=== PATIENT | female | born 1935 | race Caucasian/White ===

== ENCOUNTER 2023-06-12 16:55 | Inpatient (IN) | payer MEDICARE ==
--- NOTE | 2023-06-12 17:21 | ED ---
General Adult HPI - General Chief complaint: Neuro Symptoms/Deficit Stated complaint: Neuro Symptoms-Transfer Time Seen by Provider: 06/12/23 16:59 Source: EMS Mode of arrival: EMS Limitations: altered mental status, physical limitation - History of Present Illness Initial comments: Dictation was produced using [employer] dictation software. please excuse any grammatical, word or spelling errors. Chief Complaint: 87-year-old female transferred from outside hospital for CVA History of Present Illness: Patient is 87-year-old female. She is DO NOT RESUS CITATE. She was seen at [facility] emergency department after being found on the ground. Last normal was allegedly yesterday sometime. Patient is a poor historian secondary to dementia. History of present illness obtained from documentation review from [facility] emergency department. She had workup performed CT showed right-sided subacute versus acute infarct. She initially presented for fall. She was discovered this morning to have slurred speech and facial droop. The ROS documented in this emergency department record has been reviewed and confirmed by me. Those systems with pertinent positive or negative responses have been documented in the HPI. All other systems are other negative and/or noncontributory. - Related Data Allergies Allergy/AdvReac Type Severity Reaction Status Date / Time No Known Allergies Allergy Verified 06/12/23 17:34 Review of Systems ROS Statement: Those systems with pertinent positive or pertinent negative responses have been documented in the HPI. ROS Other: All systems not noted in ROS Statement are negative. General Exam - General Exam Comments Initial Comments: PHYSICAL EXAM: General Impression: Alert and oriented x3, not in acute distress HEENT: Normocephalic atraumatic, extra-ocular movements intact, pupils equal and reactive to light bilaterally, mucous membranes moist. Cardiovascular: Heart regular rate and rhythm Chest: Able to complete full sentences, no retractions, no tachypnea Abdomen: abdomen soft, non-tender, non-distended, no organomegaly Musculoskeletal: Pulses present and equal in all extremities, no peripheral edema Motor: no focal deficits noted Neurological: C left-sided facial droop, slurred speech, aphasic Skin: Intact with no visualized rashes Psych: Normal affect and mood Limitations: altered mental status, physical limitation Course Vital Signs 06/12/23 16:59 Temperature 98.6 F Pulse Rate 73 Respiratory 16 Rate Blood Pressure 209/69 O2 Sat by Pulse 96 Oximetry Medical Decision Making - Medical Decision Making Was pt. sent in by a medical professional or institution (PRABHAKAR Harrington, BARREL ASSEMBLY INSPECTOR, urgent care, hospital, or alf...) When possible be specific @ -Sent from outside emergency department Did you speak to anyone other than the patient for history (EMS, parent, family, police, friend...)? What history was obtained from this source @ -No Did you review nursing and triage notes (agree or disagree)? Why? @ -I reviewed and agree with nursing and triage notes Were old charts reviewed (outside hosp., previous admission, EMS record, old EKG, old radiological studies, urgent care reports/EKG's, alf records)? Report findings @ -Transfer documentation from [facility] was reviewed as discussed above Differential Diagnosis (chest pain, altered mental status, abdominal pain women, abdominal pain men, vaginal bleeding, musculoskeletal, weakness, fever, dyspnea, syncope, headache, dizziness, GI bleed, back pain, seizure, CVA, palpatations, mental health)? @ - Differential CVA: Ischemic stroke, hemorrhagic stroke, brain tumor, atypical migraine, Wernicke's encephalopathy, seizure, multiple sclerosis, meningitis, encephalitis, hypoglycemia, Guillain-Guzman, electrolytes disturbance, myasthenia gravis.... This is not meant to be an all-inclusive list EKG interpreted by me (3pts min.). @ -My EKG interpretation: Ventricular rate 80, sinus rhythm,. 142, cures 1 8, QTc 438. Interpretation limited due to significant artifact X-rays interpreted by me (1pt min.). @ -None done CT interpreted by me (1pt min.). @ -None done U/S interpreted by me (1pt. min.). @ -None done What testing was considered but not performed or refused? (CT, X-rays, U/S, labs)? Why? @ -None What meds were considered but not given or refused? Why? @ -None Did you discuss the management of the patient with other professionals (professionals i.e. PRABHAKAR Harrington, BARREL ASSEMBLY INSPECTOR, lab, RT, psych nurse, social worker health services, heel caser, teacher, special service officer, showcase maker)? Give summary @ -Case discussed with hospitalist for admission Was smoking cessation discussed for >3mins.? @ -No Was critical care preformed (if so, how long)? @ -No Were there social determinants of health that impacted care today? How? (Homelessness, low income, unemployed, alcoholism, drug addiction, transportation, low edu. Level, literacy, decrease access to med. care, nursing home, rehab)? @ -No Was there de-escalation of care discussed even if they declined (Discuss DNR or withdrawal of care, Hospice)? DNR status @ -No What co-morbidities impacted this encounter? (DM, HTN, Smoking, COPD, CAD, Cancer, CVA, ARF, Chemo, Hep., AIDS, mental health diagnosis, sleep apnea, morbid obesity)? @ -None Was patient admitted / discharged? Hospital course, mention meds given and route, prescriptions, significant lab abnormalities, going to OR and other pertinent info. @ -87-year-old female who was allegedly DNR according to paperwork presents to the ER as a transfer from outside emergency department for inpatient management of CVA. Vital signs stable. Patient well-appearing at the bedside. Patient will be admitted with consultation to neurology. Undiagnosed new problem with uncertain prognosis? @ -No Drug Therapy requiring intensive monitoring for toxicity (Heparin, Nitro, Insulin, Cardizem)? @ -No Were any procedures done? @ -No Diagnosis/symptom? Acute, or Chronic, or Acute on Chronic? Uncomplicated (without systemic symptoms) or Complicated (systemic symptoms)? @ -CVA Side effects of treatment? @ -No Exacerbation, Progression, or Severe Exacerbation? @ -No Poses a threat to life or bodily function? How? (Chest pain, [place], [place], pneumonia, PE, COPD, DKA, ARF, appy, cholecystitis, CVA, Diverticulitis, Homicidal, Suicidal, threat to staff... and all critical care pts) @ -yes Disposition Clinical Impression: Cerebrovascular accident (CVA) Disposition: ADMITTED IP TO THIS [facility] Condition: Fair Referrals: Nonstaff,Physician [Primary Care Provider] - 1-2 days Decision Time: 17:58
[2023-06-13] MEDS ORDERED: DEXTROSE 50% SYRINGE 50 ML IVP PRN ×2 (00:50)
[2023-06-13] MEDS: METOPROLOL SUCCINATE (ER) 50 MG TAB.ER.24H PO SCH (02:17)
[2023-06-13] MEDS: hydrALAZINE HCL 50 MG TAB PO SCH (02:17)
[2023-06-13] MEDS: ISOSORBIDE DINITRATE 20 MG TAB PO ONE (02:19)
[2023-06-13] MEDS: hydroCHLOROthiazide 12.5 MG CAP PO SCH (02:19)
[2023-06-13 04:18] LABS: Glucose,Whole Blood 172 mg/dL (70-110)
[2023-06-13 07:26] LABS: Glucose,Whole Blood 142 mg/dL (70-110)
[2023-06-13] MEDS: INSULIN ASPART (NovoLOG) 100 UNIT/ML VIAL SQ SCH (07:27)
[2023-06-13] MEDS: DAPAGLIFLOZIN PROPANEDIOL 10 MG TABLET PO SCH (09:17)
[2023-06-13 11:24] LABS: Chol/HDL Ratio 3.65 Ratio; LDL Cholesterol,Calculated 86.8 mg/dL (0.0-131.0)
--- NOTE | 2023-06-13 11:58 | P.HPIM ---
History of Present Illness 87-year-old female with history of advanced dementia possibly vascular dementia came in with complaints of strokelike symptoms evidenced by family members. Patient was transferred from [facility] CT of the head did not show significant acute abnormality. Repeat CT is being obtained here and get a Doppler of the carotid is being obtained. I am unable to get much of the history from the patient. On examination patient has some drift in the left hand otherwise patient has 5/5 strength in all extremities although does have some generalized weakness. Patient does not have any facial droop that I can appreciate. Neurology evaluated the patient. REVIEW OF SYSTEMS: Unable to obtain this should PHYSICAL EXAMINATION: GENERAL: The patient is alert and oriented x1 which is her baseline, not in any acute distress. Thin built HEENT: Pupils are round and equally reacting to light. EOMI. No scleral icterus. No conjunctival pallor. Normocephalic, atraumatic. No pharyngeal erythema. No thyromegaly. CARDIOVASCULAR: S1 and S2 present. No murmurs, rubs, or gallops. PULMONARY: Chest is clear to auscultation, no wheezing or crackles. ABDOMEN: Soft, nontender, nondistended, normoactive bowel sounds. No palpable organomegaly. MUSCULOSKELETAL: No joint swelling or deformity. EXTREMITIES: No cyanosis, clubbing, or pedal edema. NEUROLOGICAL: As mentioned in HPI SKIN: No rashes. Assessment and plan -Possible cerebrovascular accident in the left hand may be a stroke in the superolateral surface of the right brain, MCA territory. Patient was started on aspirin increase the statin dose permissive hypertension. -Sinus bradycardia metoprolol will be held temporarily -Vascular dementia patient is at her baseline supportive care physical therapy occupational therapy speech therapy evaluation -Type 2 diabetes mellitus -Hyperlipidemia -Hypertension -Hyperactive urinary bladder Prevention: Critical problems patient will be resumed on appropriate home medications, patient lives by herself will need placement may be in a memory care unit DVT prophylaxis: Lovenox Medications and Allergies Home Medications Medication Instructions Recorded Confirmed Type ALPRAZolam [Xanax] 0.5 mg PO BID PRN 06/12/23 06/12/23 History Atorvastatin [Lipitor] 20 mg PO HS 06/12/23 06/12/23 History Docusate [Colace] 100 mg PO Q48H 06/12/23 06/12/23 History Empagliflozin [Jardiance] 10 mg PO DAILY 06/12/23 06/12/23 History Isosorbide Dinitrate 20 mg PO DAILY 06/12/23 06/12/23 History Levothyroxine Sodium [Synthroid] 50 mcg PO DAILY 06/12/23 06/12/23 History Metoprolol Succinate (ER) [Toprol 50 mg PO DAILY 06/12/23 06/12/23 History XL] Oxybutynin Chloride [oxyBUTYnin 10 mg PO DAILY 06/12/23 06/12/23 History chloride ER] hydroCHLOROthiazide [Hydrodiuril] 12.5 mg PO DAILY 06/12/23 06/12/23 History metFORMIN HCL ER [Glucophage XR] 500 mg PO DAILY 06/12/23 06/12/23 History Allergies Allergy/AdvReac Type Severity Reaction Status Date / Time No Known Allergies Allergy Verified 06/12/23 18:48 Physical Exam Vitals: Vital Signs Temp Pulse Resp BP Pulse Ox 06/13/23 11:25 49 L 20 169/69 94 L 06/13/23 09:52 98.2 F 58 L 23 189/69 96 06/13/23 09:15 75 18 189/69 95 06/13/23 08:00 65 17 188/70 94 L 06/13/23 06:16 97.5 F L 67 16 175/58 95 06/13/23 03:26 53 L 19 167/71 94 L 06/13/23 02:00 84 16 181/81 94 L 06/12/23 22:50 61 16 202/70 95 06/12/23 20:18 72 21 196/81 95 06/12/23 19:32 72 18 201/70 96 06/12/23 18:35 74 18 139/71 95 06/12/23 16:59 98.6 F 73 16 209/69 96 Intake and Output 06/12/23 06/13/23 06/13/23 22:59 06:59 14:59 Other: Weight 65.771 kg Results Labs: Abnormal Lab Results - Last 24 Hours (Table) 06/13/23 06/13/23 06/13/23 Range/Units 04:17 07:25 07:51 POC Glucose (mg/dL) 172 H 142 H (70-110) mg/dL Triglycerides 230.00 H (0.00-149.00) mg/dL VLDL Cholesterol, Calc 46.00 H (5.00-40.00) mg/dL
[2023-06-13 12:48] LABS: Glucose,Whole Blood 131 mg/dL (70-110)
[2023-06-13] MEDS: ASPIRIN 81 MG PO SCH (12:48)
[2023-06-13] MEDS: ENOXAPARIN 40 MG/0.4 ML SYRINGE SQ SCH (12:49)
--- NOTE | 2023-06-13 13:24 | P.CNNES ---
History of Present Illness Consult date: 06/13/23 Requesting physician: Luke Eid Reason for Consult: cva History of Present Illness: This is an 87-year-old woman with history of dementia who was sent from [place] emergency department for further workup. History was obtained from medical record. Per the ED note she was found the done on the ground and last normal was allegedly the night before she presents the hospital. It seems that she was found to have slurred speech and facial droop. It seems that she had a CT of the head at the outside hospital which showed right sided subacute versus acute infarct. Some of the workup in our facility consisted of: Lipid panel is triglyceride is 23, cholesterol is 183, LDLs 86 and HDL is 50. The POC glucose is 172 Review of Systems Review of system is Limited but positive and negative as per HPI. Medications and Allergies Home Medications Medication Instructions Recorded Confirmed Type ALPRAZolam [Xanax] 0.5 mg PO BID PRN 06/12/23 06/12/23 History Atorvastatin [Lipitor] 20 mg PO HS 06/12/23 06/12/23 History Docusate [Colace] 100 mg PO Q48H 06/12/23 06/12/23 History Empagliflozin [Jardiance] 10 mg PO DAILY 06/12/23 06/12/23 History Isosorbide Dinitrate 20 mg PO DAILY 06/12/23 06/12/23 History Levothyroxine Sodium [Synthroid] 50 mcg PO DAILY 06/12/23 06/12/23 History Metoprolol Succinate (ER) [Toprol 50 mg PO DAILY 06/12/23 06/12/23 History XL] Oxybutynin Chloride [oxyBUTYnin 10 mg PO DAILY 06/12/23 06/12/23 History chloride ER] hydroCHLOROthiazide [Hydrodiuril] 12.5 mg PO DAILY 06/12/23 06/12/23 History metFORMIN HCL ER [Glucophage XR] 500 mg PO DAILY 06/12/23 06/12/23 History Allergies Allergy/AdvReac Type Severity Reaction Status Date / Time No Known Allergies Allergy Verified 06/12/23 18:48 Physical Examination - Vital Signs Vital Signs: Vital Signs Temp Pulse Resp BP Pulse Ox 06/13/23 12:47 98.1 F 67 18 181/56 96 06/13/23 11:25 49 L 20 169/69 94 L 06/13/23 09:52 98.2 F 58 L 23 189/69 96 06/13/23 09:15 75 18 189/69 95 06/13/23 08:00 65 17 188/70 94 L 06/13/23 06:16 97.5 F L 67 16 175/58 95 06/13/23 03:26 53 L 19 167/71 94 L 06/13/23 02:00 84 16 181/81 94 L 06/12/23 22:50 61 16 202/70 95 06/12/23 20:18 72 21 196/81 95 06/12/23 19:32 72 18 201/70 96 06/12/23 18:35 74 18 139/71 95 06/12/23 16:59 98.6 F 73 16 209/69 96 Intake and Output 06/12/23 06/13/23 06/13/23 22:59 06:59 14:59 Other: Weight 65.771 kg General: Lying in bed and is not in acute distress. Neuro: Limited because of cooperation and has underlying dementia. The patient is awake alert, oriented to self. She correctly stated that she is in the hospital with options. She is able to follow a few simple commands such as a showing a thumbs up lifting extremities above gravity. She's a slow following commands. Language is limited but does not appear at any aphasia. The pupils are round equal and reactive to light. The pupils are round 3 Narayan's bilaterally. Visual dodd are full to confrontation. Extraocular movement seems intact. No obvious facial weakness. Upon asking the patient small she stated that"I do not smile". No dysarthria. Motor: Strength is hard to assess individual muscle strength because of her cooperation but she was able to lift up all extremities above gravity equally. Reflexes is 2+ in the uppers Y lowers is 1+. Plantars are mute Results - Laboratory Findings Abnormal Lab Findings: Abnormal Labs 06/13/23 06/13/23 06/13/23 04:17 07:25 07:51 POC Glucose (mg/dL) 172 H 142 H Triglycerides 230.00 H VLDL Cholesterol, Calc 46.00 H 06/13/23 12:46 POC Glucose (mg/dL) 131 H Triglycerides VLDL Cholesterol, Calc Assessment and Plan Assessment: This is an 87-year-old woman who was transferred from [place] emergency department for escalation of care of her stroke. It seems that she was found down on the ground the day prior to presented to the hospital and was found to have slurred speech and facial droop. She had a CT of the brain at the outside facility and showed the right-sided subacute versus acute infarct. Acute to subacute ischemic stroke with facial droop and dysarthria. No IV thrombolytics since the patient's outside the window and the risk outweighed the benefit. Underlying history of dementia Plan: I ordered CT of the head, carotid duplex, 2-D echo I ordered TSH. Hemoglobin A1c is already ordered The primary team started the patient on aspirin 81 mg daily in addition I also started the patient on Plavix 75 mg daily. Upon reviewing the patient's home medication on EMR she was not on any antiplatelets She started on Lipitor 40 mg daily at bedtime by the primary team Continue vertex Cardiac monitoring Consulted PT and OT. DEPARTMENT STORE SALESPERSON are is consulted We'll defer the rest of the medical management to primary team and other specialists For DVT prophylaxis the patient is on Lovenox Thank you for the consultation Time with Patient: Greater than 30
--- NOTE | 2023-06-13 13:38 | CT ---
EXAMINATION TYPE: CT brain wo con DATE OF EXAM: 06/13/2023 COMPARISON: 06/12/2023. HISTORY: Stroke. CT DLP: 1078.4 mGycm Automated exposure control for dose reduction was used. FINDINGS: There is an area of encephalomalacia within the right frontoparietal region which is compatible with an old infarct and unchanged since the previous examination. No acute major vessel infarct is seen. C erebral and cerebellar atrophy is otherwise noted. There is no acute intracranial hemorrhage, mass, mass effect, midline shift, extra-axial fluid collec tion or hydrocephalus. IMPRESSION: UNCHANGED APPEARANCE TO OLD RIGHT-SIDED INFARCT WITH NO ACUTE INTRACRANIAL PROCESS OTHERWISE SEEN.
[2023-06-13] MEDS: CLOPIDOGREL 75 MG TAB PO SCH (15:22)
--- NOTE | 2023-06-13 16:21 | US ---
EXAMINATION TYPE: US carotid duplex BILAT DATE OF EXAM: 06/13/2023 COMPARISON: NONE CLINICAL INDICATION: Female, 87 years old with history of stroke; stroke TECHNIQUE: Carotid duplex ultrasound examination. Indirect Doppler criteria was utilized. FINDINGS: EXAM MEASUREMENTS: RIGHT: Peak Systolic Velocity (PSV) cm/sec ----- Right CCA: 62.4 ----- Right ICA: 84.2 ----- Right ECA: 219.5 ICA/CCA ratio: 1.3 RIGHT: End Diastole cm/sec ----- Right CCA: 0 ----- Right ICA: 11.5 ----- Right ECA: 0 LEFT: Peak Systolic Velocity (PSV) cm/sec ----- Left CCA: 70.7 ----- Left ICA: 117.9 ----- Left ECA: 171.7 ICA/CCA ratio: 1.7 LEFT: End Diastole cm/sec ----- Left CCA: 11.6 ----- Left ICA: 21.5 ----- Left ECA: 0 VERTEBRALS (direction of flow): Right Vertebral: Antegrade Left Vertebral: Antegrade Rhythm: Normal HOT DIP TINNING SUPERVISOR NOTES: elevated velocities. IMPRESSION: Less than 50 % stenosis of the bilateral carotid bifurcations. Criteria for Assigning % of Stenosis / Diameter reduction (Estimation based on the indirect measurements of the internal carotid artery velocities (ICA PSV). 1. Normal (no stenosis)=ICA PSV < 125 cm/s: ratio < 2.0: ICA EDV<40 cm/s. 2. Less than 50% stenosis=ICA PSV < 125 cm/s: ratio < 2.0: ICA EDV<40 cm/s. 3. 50 to 69% stenosis=ICA PSV of 125 to 230 cm/s: ration 2.0 ? 4.0: ICA EDV 40-100 cm/s. 4. Greater than 70% stenosis to near occlusion= ICA PSV > 230 cm/s: ratio > 4.0: ICA EDV > 100 cm/s. 5. Near occlusion= ICA PSV velocities may be low or undetectable: variable ratio and ICA EDV. 6. Total occlusion=unable to detect flow.
[2023-06-13 16:47] LABS: Glucose,Whole Blood 227 mg/dL (70-110)
[2023-06-13 20:05] LABS: Glucose,Whole Blood 204 mg/dL (70-110)
[2023-06-13] MEDS: ATORVASTATIN 40 MG TAB PO SCH (21:31)
[2023-06-14] MEDS: LOSARTAN 25 MG TAB PO STA (05:04)
[2023-06-14 06:19] LABS: Glucose,Whole Blood 166 mg/dL (70-110)
[2023-06-14] MEDS: LEVOTHYROXINE 50 MCG TAB PO SCH (06:31)
[2023-06-14] MEDS ORDERED: METOPROLOL SUCCINATE (ER) 50 MG TAB.ER.24H PO SCH (09:00)
--- NOTE | 2023-06-14 09:36 | CA ---
Transthoracic Echo Report Name: Nel Hernandez Age: 87 Gender: F : 1935 Exam Date: 06/13/2023 14:48 Exam Location: [facility] Ht (in): 65 Wt (lb): 145 Ordering Physician: Thony June MD Attending/Referring Phys: Dancing Instructor Talia Sheth RDCS Procedure CPT: Indications: stroke Cardiac Hx: Technical Quality: Fair Contrast 1: Agitated Saline Total Dose (mL): 9 Contrast 2: Total Dose (mL): MEASUREMENTS (Male / Female) Normal Values 2D ECHO LV Diastolic Diameter PLAX 4.3 cm 4.2 - 5.9 / 3.9 - 5.3 cm LV Systolic Diameter PLAX 3.2 cm IVS Diastolic Thickness 1.2 cm 0.6 - 1.0 / 0.6 - 0.9 cm LVPW Diastolic Thickness 1.2 cm 0.6 - 1.0 / 0.6 - 0.9 cm LV Relative Wall Thickness 0.6 RV Internal Dim ED PLAX 2.8 cm LVOT Diameter 2.3 cm LA Systolic Diameter LX 3.4 cm 3.0 - 4.0 / 2.7 - 3.8 cm LV Diastolic Volume MOD BP 35.2 cm??? 67 - 155 / 56 - 104 cm??? LV Systolic Volume MOD BP 14.8 cm??? - 58 / 19 - 49 cm??? LV Ejection Fraction MOD BP 57.9 % >= 55 % LV Cardiac Index MOD BP 724.6 cm???/min???m??? LV Diastolic Volume MOD 4C 61.1 cm??? LV Systolic Volume MOD 4C 31.4 cm??? LV Ejection Fraction MOD 4C 48.6 % LV Cardiac Index MOD 4C 1055.7 cm???/min???m??? LV Diastolic Length 4C 6.6 cm LV Systolic Length 4C 5.7 cm LV Diastolic Volume MOD 2C 28.6 cm??? LV Systolic Volume MOD 2C 13.0 cm??? LV Ejection Fraction MOD 2C 54.7 % LV Cardiac Index MOD 2C 556.5 cm???/min???m??? LV Diastolic Length 2C 6.2 cm LV Systolic Length 2C 4.3 cm LA Volume 28.4 cm??? 18 - 58 / 22 - 52 cm??? LA Volume Index 16.3 cm???/m??? 16 - 28 cm???/m??? M-MODE Aortic Root Diameter MM 2.8 cm DOPPLER AV Peak Velocity 205.1 cm/s AV Peak Gradient 16.8 mmHg LVOT Peak Velocity 98.0 cm/s LVOT Peak Gradient 3.8 mmHg AV Area Cont Eq pk 1.9 cm??? Mitral E Point Velocity 63.7 cm/s Mitral A Point Velocity 111.2 cm/s Mitral E to A Ratio 0.6 MV Deceleration Time 402.0 ms MV E' Velocity 2.4 cm/s Mitral E to MV E' Ratio 26.4 FINDINGS Left Ventricle Left ventricular ejection fraction is estimated at 55-60 %. Left ventricular cavity size normal. Mildly increased septal wall thickness. Mildly increased posterior wall thickness. Normal left ventricular wall motion. Right Ventricle Normal right ventricular size. Unable to estimate the right ventricular systolic pressure. Right Atrium Normal right atrial size.Negative agitated saline bubble study for right to left shunt. Left Atrium Normal left atrial size. Mitral Valve Structurally normal mitral valve. No mitral stenosis, regurgitation or prolapse. Aortic Valve Trileaflet aortic valve. Aortic valve sclerosis. Mild aortic stenosis with a peak gradient of 17 mmHg and a mean gradient of 8 mmHg. Tricuspid Valve Structurally normal tricuspid valve. No tricuspid regurgitation. Pulmonic Valve No pulmonic regurgitation. Pericardium No pericardial effusion. Aorta Normal size aortic root and proximal ascending aorta. CONCLUSIONS Technically difficult study was poorly visualized endocardium Normal LV systolic function Mild aortic stenosis. The aortic valve is calcified Previewed by: Dr. Brandon Enciso MD (Electronically Signed) Final Date: 14 June 2023 09:35
[2023-06-14 09:59] LABS: Basophils # (A) 0.1 k/uL (0-0.2); Basophils % (A) 0 %; Eosinophils # (A) 0.1 k/uL (0-0.7); Eosinophils % (A) 1 %; HCT 46.6 % (34.0-46.0); HGB 15.6 gm/dL (11.4-16.0); Lymphocytes # (A) 1.1 k/uL (1.0-4.8); Lymphocytes % (A) 9 %; MCH 28.5 pg (25.0-35.0); MCHC 33.5 g/dL (31.0-37.0); MCV 85.1 fL (80.0-100.0); Monocytes # (A) 0.7 k/uL (0-1.0); Monocytes % (A) 6 %; Neutrophils # (A) 10.8 k/uL (1.3-7.7); Neutrophils % (A) 83 %; Platelet Count 304 k/uL (150-450); RBC 5.47 m/uL (3.80-5.40); RDW 14.2 % (11.5-15.5); WBC 12.9 k/uL (3.8-10.6)
[2023-06-14 10:17] LABS: African American GFR (CKD) 47 (>60 ml/min/1.73 sqM); Anion Gap 8 mmol/L; Blood Urea Nitrogen 43 mg/dL (7-17); Calcium 10.2 mg/dL (8.4-10.2); Carbon Dioxide 30 mmol/L (22-30); Chloride 99 mmol/L (98-107); Glucose 150 mg/dL (74-99); Magnesium 2.3 mg/dL (1.6-2.3); Non-African American GFR(CKD) 41 (>60 ml/min/1.73 sqM); Potassium 3.3 mmol/L (3.5-5.1); Sodium 137 mmol/L (137-145)
[2023-06-14] MEDS: OXYBUTYNIN 10 MG TAB.ER.24 PO SCH (10:43)
[2023-06-14] MEDS: DOCUSATE 100 MG CAP PO SCH (10:43)
[2023-06-14] MEDS: ISOSORBIDE DINITRATE 20 MG TAB PO SCH (10:44)
[2023-06-14 11:41] LABS: Glucose,Whole Blood 184 mg/dL (70-110)
[2023-06-14 12:17] VITALS: BMI 24.1
--- NOTE | 2023-06-14 14:06 | P.PN ---
Subjective Progress Note Date: 06/14/23 I am following-up with patient and is about the same. Objective - Vital Signs Vital signs: Vital Signs Temp 97.6 F 06/14/23 09:15 Pulse 85 06/14/23 12:35 Resp 16 06/14/23 12:35 BP 116/62 06/14/23 12:35 Pulse Ox 94 L 06/14/23 12:35 FiO2 Intake & Output 06/13/23 06/14/23 06/14/23 18:59 06:59 18:59 Intake Total 118 0 240 Output Total 450 Balance 118 -450 240 Weight 65.771 kg 65.771 kg Intake: Oral 118 0 240 Output: Urine 450 Other: Voiding Method Incontinent Incontinent Incontinent External Catheter External Catheter External Catheter # Voids 1 - Exam General: Lying in bed and is not in acute distress. Neuro: Limited because of cooperation and has underlying dementia. The patient is awake alert, oriented to self. She correctly stated that she is in the hospital with options. She is able to follow a few simple commands such as a showing a thumbs up lifting extremities above gravity. She's a slow following commands. Language is limited but does not appear at any aphasia. The pupils are round equal and reactive to light. The pupils are round 3 Narayan's bilaterally. Visual dodd are full to confrontation. Extraocular movement seems intact. No obvious facial weakness. Upon asking the patient small she stated that"I do not smile". No dysarthria. Motor: Strength is hard to assess individual muscle strength because of her cooperation but she was able to lift up all extremities above gravity equally. Reflexes is 2+ in the uppers Y lowers is 1+. Plantars are mute Some of the workup in our facility consisted of: Lipid panel is triglyceride is 23, cholesterol is 183, LDLs 86 and HDL is 50. 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 carotid duplex:reported as less than 50% stenosis of bilateral carotid bifurcation. 2D echo: Is reported as technically difficult study was poorly visualized endocardium. Normal left ventricle systolic function. - Labs CBC & Chem 7: 06/14/23 08:36 06/14/23 08:36 Labs: Abnormal Lab Results - Last 24 Hours (Table) 06/13/23 06/13/23 06/13/23 Range/Units 07:51 16:46 20:01 WBC (3.8-10.6) k/uL RBC (3.80-5.40) m/uL Hct (34.0-46.0) % Neutrophils # (1.3-7.7) k/uL Potassium (3.5-5.1) mmol/L BUN (7-17) mg/dL Creatinine (0.52-1.04) mg/dL Glucose (74-99) mg/dL POC Glucose (mg/dL) 227 H 204 H (70-110) mg/dL Hemoglobin A1c 7.2 H (<=6.0) % 06/14/23 06/14/23 06/14/23 Range/Units 06:16 08:36 08:36 WBC 12.9 H (3.8-10.6) k/uL RBC 5.47 H (3.80-5.40) m/uL Hct 46.6 H (34.0-46.0) % Neutrophils # 10.8 H (1.3-7.7) k/uL Potassium 3.3 L (3.5-5.1) mmol/L BUN 43 H (7-17) mg/dL Creatinine 1.19 H (0.52-1.04) mg/dL Glucose 150 H (74-99) mg/dL POC Glucose (mg/dL) 166 H (70-110) mg/dL Hemoglobin A1c (<=6.0) % 06/14/23 Range/Units 11:38 WBC (3.8-10.6) k/uL RBC (3.80-5.40) m/uL Hct (34.0-46.0) % Neutrophils # (1.3-7.7) k/uL Potassium (3.5-5.1) mmol/L BUN (7-17) mg/dL Creatinine (0.52-1.04) mg/dL Glucose (74-99) mg/dL POC Glucose (mg/dL) 184 H (70-110) mg/dL Hemoglobin A1c (<=6.0) % Assessment and Plan Assessment: This is an 87-year-old woman who was transferred from [place] emergency department for escalation of care of her stroke. It seems that she was found down on the ground the day prior to presented to the hospital and was found to have slurred speech and facial droop. She had a CT of the brain at the outside facility and showed the right-sided subacute versus acute infarct. 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 Acute facial droop and dysarthria. Rule out acute to subacute stroke. Since outside stated acute to subacute on CT head while our CT reported as old. Underlying history of dementia DM Plan: I will pursue with MRI Brain. The primary team started the patient on aspirin 81 mg daily in addition yesterday I also started the patient on Plavix 75 mg daily. Upon reviewing the patient's home medication on EMR she was not on any antiplatelets. If no acute or subacute cva on MRI then I will discontinue dual antiplatelets. She started on Lipitor 40 mg daily at bedtime by the primary team Continue Neuro checks. Cardiac monitoring Consulted PT and OT. LINE HELPER are is consulted We'll defer the rest of the medical management to primary team and other specialists For DVT prophylaxis the patient is on Lovenox The plan is discussed with primary team N.P. Time with Patient: Less than 30
--- NOTE | 2023-06-14 15:12 | P.PN ---
Subjective Progress Note Date: 06/14/23 87-year-old female with history of advanced dementia possibly vascular dementia came in with complaints of strokelike symptoms evidenced by family members. Patient was transferred from [facility] CT of the head did not show significant acute abnormality. Repeat CT is being obtained here and get a Doppler of the carotid is being obtained. I am unable to get much of the history from the patient. On examination patient has some drift in the left hand otherwise patient has 5/5 strength in all extremities although does have some generalized weakness. Patient does not have any facial droop that I can appreciate. Neurology evaluated the patient. 06/14/2023 Patient is evaluated in follow-up today in the stepdown unit. Patient remains alert x 2 with mild confusion and also appears to be having auditory hallucinations stating that somebody is in the room with her behind the chair. Her brain CT reveals an old right-sided infarct. Echocardiogram reveals an EF of 55 to 60% with mild aortic stenosis. Carotid Doppler is showing less than 50% stenosis bilaterally. Blood work today reveals a white blood cell count of 12.9, hemoglobin 15.6, sodium 137, potassium 3.3, BUN of 43, creatinine of 1.19. Blood glucose is in the 200s. Review of Systems Constitutional: Denied any fatigue denied any fever. Cardio vascular: denied any chest pain, palpitations Gastrointestinal: denied any nausea, vomiting, diarrhea Pulmonary: Denied any shortness of breath cough Neurologic denied any new focal deficits All inpatient medications were reviewed and appropriate changes in these medications as dictated in the interval history and assessment and plan. Assessment and plan -Possible cerebrovascular accident with weakness of the left hand. May be a stroke in the superolateral surface of the right brain, MCA territory. Patient was started on aspirin increase the statin dose permissive hypertension. -Sinus bradycardia resolved, patient has been transitioned from metoprolol to carvedilol. -Vascular dementia patient is at her baseline supportive care physical therapy occupational therapy speech therapy evaluation -Type 2 diabetes mellitus -Hyperlipidemia -Hypertension -Hyperactive urinary bladder Prevention: Critical problems patient will be resumed on appropriate home medications, patient lives by herself will need placement may be in a memory care unit DVT prophylaxis: Lovenox GI prophylaxis: Pepcid Do Not Resuscitate Do Not Intubate Pending MRI and PT/OT. Repeat labs in the AM. Patient will by hydrated. The impression and plan of care has been dictated by Nurse Columba Practitioner as directed. Dr. Yusef MD I have performed a history and physical examination and medical decision making of this patient, discussed the same with the dictator, and agree with the dictators assessment and plan as written, documented as a scribe. Based on total visit time, I have performed more than 50% of this visit. The impression and plan of care has been dictated by Nurse Columba Practitioner as directed. Dr. Yusef MD I have performed a history and physical examination and medical decision making of this patient, discussed the same with the dictator, and agree with the dictators assessment and plan as written, documented as a scribe. Based on total visit time, I have performed more than 50% of this visit. Objective - Vital Signs Vital signs: Vital Signs Temp 97.6 F 06/14/23 09:15 Pulse 85 06/14/23 12:35 Resp 16 06/14/23 14:00 BP 116/62 06/14/23 12:35 Pulse Ox 94 L 06/14/23 12:35 FiO2 Intake & Output 06/13/23 06/14/23 06/14/23 18:59 06:59 18:59 Intake Total 118 0 240 Output Total 450 Balance 118 -450 240 Weight 65.771 kg 65.771 kg Intake: Oral 118 0 240 Output: Urine 450 Other: Voiding Method Incontinent Incontinent Incontinent External Catheter External Catheter External Catheter # Voids 1 1 - Labs CBC & Chem 7: 06/14/23 08:36 06/14/23 08:36 Labs: Abnormal Lab Results - Last 24 Hours (Table) 06/13/23 06/13/23 06/13/23 Range/Units 07:51 16:46 20:01 WBC (3.8-10.6) k/uL RBC (3.80-5.40) m/uL Hct (34.0-46.0) % Neutrophils # (1.3-7.7) k/uL Potassium (3.5-5.1) mmol/L BUN (7-17) mg/dL Creatinine (0.52-1.04) mg/dL Glucose (74-99) mg/dL POC Glucose (mg/dL) 227 H 204 H (70-110) mg/dL Hemoglobin A1c 7.2 H (<=6.0) % 06/14/23 06/14/23 06/14/23 Range/Units 06:16 08:36 08:36 WBC 12.9 H (3.8-10.6) k/uL RBC 5.47 H (3.80-5.40) m/uL Hct 46.6 H (34.0-46.0) % Neutrophils # 10.8 H (1.3-7.7) k/uL Potassium 3.3 L (3.5-5.1) mmol/L BUN 43 H (7-17) mg/dL Creatinine 1.19 H (0.52-1.04) mg/dL Glucose 150 H (74-99) mg/dL POC Glucose (mg/dL) 166 H (70-110) mg/dL Hemoglobin A1c (<=6.0) % 06/14/23 Range/Units 11:38 WBC (3.8-10.6) k/uL RBC (3.80-5.40) m/uL Hct (34.0-46.0) % Neutrophils # (1.3-7.7) k/uL Potassium (3.5-5.1) mmol/L BUN (7-17) mg/dL Creatinine (0.52-1.04) mg/dL Glucose (74-99) mg/dL POC Glucose (mg/dL) 184 H (70-110) mg/dL Hemoglobin A1c (<=6.0) % Assessment and Plan Time with Patient: Less than 30
[2023-06-14 15:57] LABS: Glucose,Whole Blood 326 mg/dL (70-110)
[2023-06-14 15:57] LABS: Glucose,Whole Blood 334 mg/dL (70-110)
[2023-06-14] MEDS: SODIUM CHLORIDE 0.9% 1,000 ML IV SCH (16:46)
[2023-06-14] MEDS: POTASSIUM CHLORIDE ER 10 MEQ TAB.ER.PRT PO SCH (16:46)
[2023-06-14 20:39] LABS: Glucose,Whole Blood 127 mg/dL (70-110)
[2023-06-15 06:09] LABS: Glucose,Whole Blood 135 mg/dL (70-110)
[2023-06-15] MEDS: carvediloL 3.125 MG TAB PO SCH (06:29)
[2023-06-15 11:21] LABS: Glucose,Whole Blood 134 mg/dL (70-110)
[2023-06-15] MEDS: FAMOTIDINE 20 MG TAB PO SCH (11:47)
[2023-06-15] MEDS: LOSARTAN 25 MG TAB PO SCH (11:47)
[2023-06-15] MEDS: ENOXAPARIN 30 MG/0.3 ML SYRINGE SQ SCH (11:47)
[2023-06-15 12:43] LABS: Basophils # (A) 0.1 k/uL (0-0.2); Basophils % (A) 1 %; Eosinophils # (A) 0.2 k/uL (0-0.7); Eosinophils % (A) 2 %; HCT 48.4 % (34.0-46.0); HGB 16.2 gm/dL (11.4-16.0); Lymphocytes # (A) 1.4 k/uL (1.0-4.8); Lymphocytes % (A) 14 %; MCH 28.7 pg (25.0-35.0); MCHC 33.5 g/dL (31.0-37.0); MCV 85.8 fL (80.0-100.0); Mean Platelet Volume 7.6; Monocytes # (A) 0.5 k/uL (0-1.0); Monocytes % (A) 5 %; Neutrophils # (A) 7.9 k/uL (1.3-7.7); Neutrophils % (A) 77 %; Platelet Count 286 k/uL (150-450); RBC 5.65 m/uL (3.80-5.40); RDW 14.2 % (11.5-15.5); WBC 10.2 k/uL (3.8-10.6)
[2023-06-15 12:49] LABS: African American GFR (CKD) 60 (>60 ml/min/1.73 sqM); Anion Gap 8 mmol/L; Blood Urea Nitrogen 38 mg/dL (7-17); Calcium 10.7 mg/dL (8.4-10.2); Carbon Dioxide 28 mmol/L (22-30); Chloride 104 mmol/L (98-107); Glucose 147 mg/dL (74-99); Non-African American GFR(CKD) 52 (>60 ml/min/1.73 sqM); Potassium 3.5 mmol/L (3.5-5.1); Sodium 140 mmol/L (137-145)
--- NOTE | 2023-06-15 13:48 | P.PN ---
Subjective Progress Note Date: 06/15/23 87-year-old female with history of advanced dementia possibly vascular dementia came in with complaints of strokelike symptoms evidenced by family members. Patient was transferred from [facility] CT of the head did not show significant acute abnormality. Repeat CT is being obtained here and get a Doppler of the carotid is being obtained. I am unable to get much of the history from the patient. On examination patient has some drift in the left hand otherwise patient has 5/5 strength in all extremities although does have some generalized weakness. Patient does not have any facial droop that I can appreciate. Neurology evaluated the patient. 06/14/2023 Patient is evaluated in follow-up today in the stepdown unit. Patient remains alert x 2 with mild confusion and also appears to be having auditory hallucinations stating that somebody is in the room with her behind the chair. Her brain CT reveals an old right-sided infarct. Echocardiogram reveals an EF of 55 to 60% with mild aortic stenosis. Carotid Doppler is showing less than 50% stenosis bilaterally. Blood work today reveals a white blood cell count of 12.9, hemoglobin 15.6, sodium 137, potassium 3.3, BUN of 43, creatinine of 1.19. Blood glucose is in the 200s. 06/15/2023 Patient is evaluated in follow-up today she is currently resting in bed with no acute complaints. She is currently alert x 2 she does have mild confusion however she has dementia at baseline. Discussion with neurology regarding plan of care patient is scheduled to undergo MRI which will likely be tomorrow due to the scheduling conflicts. She did receive authorization today for discharge to [facility] Review of Systems Constitutional: Denied any fatigue denied any fever. Cardio vascular: denied any chest pain, palpitations Gastrointestinal: denied any nausea, vomiting, diarrhea Pulmonary: Denied any shortness of breath cough Neurologic denied any new focal deficits All inpatient medications were reviewed and appropriate changes in these medications as dictated in the interval history and assessment and plan. Assessment and plan -Possible cerebrovascular accident with weakness of the left hand. May be a st roke in the superolateral surface of the right brain, MCA territory. Patient was started on aspirin increase the statin dose permissive hypertension. -Sinus bradycardia resolved, patient has been transitioned from metoprolol to carvedilol. -Vascular dementia patient is at her baseline supportive care physical therapy occupational therapy speech therapy evaluation -Type 2 diabetes mellitus -Hyperlipidemia -Hypertension -Hyperactive urinary bladder DVT prophylaxis: Lovenox GI prophylaxis: Pepcid Do Not Resuscitate Do Not Intubate Pending MRI and PT/OT. Repeat labs in the AM. Patient will by hydrated. MRI unable to be completed today she has been accepted at [facility] with discharge planning hopefully for tomorrow after MRI. The impression and plan of care has been dictated by Shruthi Swartz, Nurse Practitioner as directed. Dr. Yusef MD I have performed a history and physical examination and medical decision making of this patient, discussed the same with the dictator, and agree with the dictators assessment and plan as written, documented as a scribe. Based on total visit time, I have performed more than 50% of this visit. Objective - Vital Signs Vital signs: Vital Signs Temp 98.0 F 06/15/23 11:00 Pulse 90 06/15/23 11:00 Resp 16 06/15/23 11:00 BP 200/86 06/15/23 11:00 Pulse Ox 94 L 06/15/23 11:00 FiO2 Intake & Output 06/14/23 06/15/23 06/15/23 18:59 06:59 18:59 Intake Total 240 Output Total 350 Balance 240 -350 Weight 65.771 kg Intake: Oral 240 Output: Urine 350 Other: Voiding Method Incontinent Incontinent Incontinent External Catheter External Catheter External Catheter # Voids 1 2 - Labs CBC & Chem 7: 06/15/23 11:58 06/15/23 11:58 Labs: Abnormal Lab Results - Last 24 Hours (Table) 06/14/23 06/14/23 06/14/23 Range/Units 15:55 15:56 20:38 RBC (3.80-5.40) m/uL Hgb (11.4-16.0) gm/dL Hct (34.0-46.0) % Neutrophils # (1.3-7.7) k/uL BUN (7-17) mg/dL Glucose (74-99) mg/dL POC Glucose (mg/dL) 326 H 334 H 127 H (70-110) mg/dL Calcium (8.4-10.2) mg/dL 06/15/23 06/15/23 06/15/23 Range/Units 06:07 11:19 11:58 RBC 5.65 H (3.80-5.40) m/uL Hgb 16.2 H (11.4-16.0) gm/dL Hct 48.4 H (34.0-46.0) % Neutrophils # 7.9 H (1.3-7.7) k/uL BUN (7-17) mg/dL Glucose (74-99) mg/dL POC Glucose (mg/dL) 135 H 134 H (70-110) mg/dL Calcium (8.4-10.2) mg/dL 06/15/23 Range/Units 11:58 RBC (3.80-5.40) m/uL Hgb (11.4-16.0) gm/dL Hct (34.0-46.0) % Neutrophils # (1.3-7.7) k/uL BUN 38 H (7-17) mg/dL Glucose 147 H (74-99) mg/dL POC Glucose (mg/dL) (70-110) mg/dL Calcium 10.7 H (8.4-10.2) mg/dL Assessment and Plan Time with Patient: Less than 30
--- NOTE | 2023-06-15 14:17 | P.PN ---
Subjective Progress Note Date: 06/15/23 I am following-up with patient and she is about the same. Objective - Vital Signs Vital signs: Vital Signs Temp 98.0 F 06/15/23 11:00 Pulse 90 06/15/23 11:00 Resp 16 06/15/23 11:00 BP 200/86 06/15/23 11:00 Pulse Ox 94 L 06/15/23 11:00 FiO2 Intake & Output 06/14/23 06/15/23 06/15/23 18:59 06:59 18:59 Intake Total 240 Output Total 350 Balance 240 -350 Weight 65.771 kg Intake: Oral 240 Output: Urine 350 Other: Voiding Method Incontinent Incontinent Incontinent External Catheter External Catheter External Catheter # Voids 1 2 - Exam General: Lying in bed and is not in acute distress. Neuro: Limited because of cooperation and has underlying dementia. The patient is awake alert, oriented to self. She correctly stated that she is in the hospital with options. She is able to follow a few simple commands such as a showing a thumbs up lifting extremities above gravity. She's a slow following commands. Language is limited but does not appear at any aphasia. The pupils are round equal and reactive to light. The pupils are round 3 Narayan's bilaterally. Visual dodd are full to confrontation. Extraocular movement seems intact. No obvious facial weakness. Upon asking the patient small she stated that"I do not smile". No dysarthria. Motor: Strength is hard to assess individual muscle strength because of her cooperation but she was able to lift up all extremities above gravity equally. Reflexes is 2+ in the uppers Y lowers is 1+. Plantars are mute Some of the workup in our facility consisted of: Lipid panel is triglyceride is 23, cholesterol is 183, LDLs 86 and HDL is 50. 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 carotid duplex:reported as less than 50% stenosis of bilateral carotid bifurcation. 2D echo: Is reported as technically difficult study was poorly visualized endocardium. Normal left ventricle systolic function. - Labs CBC & Chem 7: 06/15/23 11:58 06/15/23 11:58 Labs: Abnormal Lab Results - Last 24 Hours (Table) 06/14/23 06/14/2324 Range/Units 15:55 15:56 20:38 RBC (3.80-5.40) m/uL Hgb (11.4-16.0) gm/dL Hct (34.0-46.0) % Neutrophils # (1.3-7.7) k/uL BUN (7-17) mg/dL Glucose (74-99) mg/dL POC Glucose (mg/dL) 326 H 334 H 127 H (70-110) mg/dL Calcium (8.4-10.2) mg/dL 06/15/23 06/15/23 06/15/23 Range/Units 06:07 11:19 11:58 RBC 5.65 H (3.80-5.40) m/uL Hgb 16.2 H (11.4-16.0) gm/dL Hct 48.4 H (34.0-46.0) % Neutrophils # 7.9 H (1.3-7.7) k/uL BUN (7-17) mg/dL Glucose (74-99) mg/dL POC Glucose (mg/dL) 135 H 134 H (70-110) mg/dL Calcium (8.4-10.2) mg/dL 06/15/23 Range/Units 11:58 RBC (3.80-5.40) m/uL Hgb (11.4-16.0) gm/dL Hct (34.0-46.0) % Neutrophils # (1.3-7.7) k/uL BUN 38 H (7-17) mg/dL Glucose 147 H (74-99) mg/dL POC Glucose (mg/dL) (70-110) mg/dL Calcium 10.7 H (8.4-10.2) mg/dL Assessment and Plan Assessment: This is an 87-year-old woman who was transferred from [place] emergency department for escalation of care of her stroke. It seems that she was found down on the ground the day prior to presented to the hospital and was found to have slurred speech and facial droop. She had a CT of the brain at the outside facility and showed the right-sided subacute versus acute infarct. 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 Acute facial droop and dysarthria. Rule out acute to subacute stroke. Since outside stated acute to subacute on CT head while our CT reported as old. Underlying history of dementia DM Plan: Pending MRI Brain. The primary team started the patient on aspirin 81 mg daily in addition yesterday I also started the patient on Plavix 75 mg daily. Upon reviewing the patient's home medication on EMR she was not on any antiplatelets. If no acute or subacute cva on MRI then I will discontinue dual antiplatelets. Continue Lipitor 40 mg daily at bedtime by the primary team Continue Neuro checks. Cardiac monitoring Consulted PT and OT. AUTOMOBILE RADIATOR MECHANIC are is consulted We'll defer the rest of the medical management to primary team and other specialists For DVT prophylaxis the patient is on Lovenox The plan is discussed with primary team N.P. Time with Patient: Less than 30
[2023-06-15 16:46] LABS: Glucose,Whole Blood 248 mg/dL (70-110)
[2023-06-15 20:23] LABS: Glucose,Whole Blood 124 mg/dL (70-110)
[2023-06-16 06:15] LABS: Glucose,Whole Blood 131 mg/dL (70-110)
[2023-06-16] MEDS: ENOXAPARIN 40 MG/0.4 ML SYRINGE SQ SCH (08:39)
[2023-06-16 11:43] LABS: Glucose,Whole Blood 239 mg/dL (70-110)
--- NOTE | 2023-06-16 13:09 | P.PN ---
Subjective Progress Note Date: 06/16/23 I am following-up with patient and she is about the same. MRI Brain is scheduled for today. Objective - Vital Signs Vital signs: Vital Signs Temp 98.0 F 06/16/23 08:30 Pulse 87 06/16/23 12:13 Resp 16 06/16/23 12:13 BP 137/71 06/16/23 12:13 Pulse Ox 94 L 06/16/23 12:13 FiO2 Intake & Output 06/15/23 06/16/23 06/16/23 18:59 06:59 18:59 Output Total 300 450 300 Balance -300 -450 -300 Weight 65.771 kg Output: Urine 300 450 300 Other: Voiding Method Incontinent Incontinent Incontinent External Catheter External Catheter External Catheter - Exam General: Lying in bed and is not in acute distress. Neuro: Limited because of cooperation and has underlying dementia. The patient is awake alert, oriented to self. She correctly stated that she is in the hospital with options. She is able to follow a few simple commands such as a showing a thumbs up lifting extremities above gravity. She's a slow following commands. Language is limited but does not appear at any aphasia. The pupils are round equal and reactive to light. The pupils are round 3 Narayan's bilaterally. Visual dodd are full to confrontation. Extraocular movement seems intact. No obvious facial weakness. Upon asking the patient small she stated that"I do not smile". No dysarthria. Motor: Strength is hard to assess individual muscle strength because of her coop eration but she was able to lift up all extremities above gravity equally. Reflexes is 2+ in the uppers Y lowers is 1+. Plantars are mute Some of the workup in our facility consisted of: Lipid panel is triglyceride is 23, cholesterol is 183, LDLs 86 and HDL is 50. 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 carotid duplex:reported as less than 50% stenosis of bilateral carotid bifurcation. 2D echo: Is reported as technically difficult study was poorly visualized endocardium. Normal left ventricle systolic function. - Labs CBC & Chem 7: 06/15/23 11:58 06/15/23 11:58 Labs: Abnormal Lab Results - Last 24 Hours (Table) 06/15/23 06/15/23 06/16/23 Range/Units 16:44 20:19 06:13 POC Glucose (mg/dL) 248 H 124 H 131 H (70-110) mg/dL 06/16/23 Range/Units 11:42 POC Glucose (mg/dL) 239 H (70-110) mg/dL Assessment and Plan Assessment: This is an 87-year-old woman who was transferred from [place] emergency department for escalation of care of her stroke. It seems that she was found down on the ground the day prior to presented to the hospital and was found to have slurred speech and facial droop. She had a CT of the brain at the outside facility and showed the right-sided subacute versus acute infarct. 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 Acute facial droop and dysarthria. Rule out acute to subacute stroke. Since outside stated acute to subacute on CT head while our CT reported as old. Underlying history of dementia DM Plan: Pending MRI Brain. The primary team started the patient on aspirin 81 mg daily in addition yesterday I also started the patient on Plavix 75 mg daily. Upon reviewing the patient's home medication on EMR she was not on any antiplatelets. If no acute or subacute cva on MRI then I will discontinue dual antiplatelets. Continue Lipitor 40 mg daily at bedtime by the primary team Continue Neuro checks. Cardiac monitoring Consulted PT and OT. DOT COMPLIANCE COORDINATOR are is consulted We'll defer the rest of the medical management to primary team and other specialists For DVT prophylaxis the patient is on Lovenox The plan is discussed with primary team NKarmen
--- NOTE | 2023-06-16 14:03 | P.PN ---
Subjective Progress Note Date: 06/16/23 87-year-old female with history of advanced dementia possibly vascular dementia came in with complaints of strokelike symptoms evidenced by family members. Patient was transferred from [facility] CT of the head did not show significant acute abnormality. Repeat CT is being obtained here and get a Doppler of the carotid is being obtained. I am unable to get much of the history from the patient. On examination patient has some drift in the left hand otherwise patient has 5/5 strength in all extremities although does have some generalized weakness. Patient does not have any facial droop that I can appreciate. Neurology evaluated the patient. 06/14/2023 Patient is evaluated in follow-up today in the stepdown unit. Patient remains alert x 2 with mild confusion and also appears to be having auditory hallucinations stating that somebody is in the room with her behind the chair. Her brain CT reveals an old right-sided infarct. Echocardiogram reveals an EF of 55 to 60% with mild aortic stenosis. Carotid Doppler is showing less than 50% stenosis bilaterally. Blood work today reveals a white blood cell count of 12.9, hemoglobin 15.6, sodium 137, potassium 3.3, BUN of 43, creatinine of 1.19. Blood glucose is in the 200s. 06/15/2023 Patient is evaluated in follow-up today she is currently resting in bed with no acute complaints. She is currently alert x 2 she does have mild confusion however she has dementia at baseline. Discussion with neurology regarding plan of care patient is scheduled to undergo MRI which will likely be tomorrow due to the scheduling conflicts. She [facility] Patient is seen and evaluated in follow-up today extremely hard of hearing although reports no significant change from previous. Patient denies any chest pain or shortness of breath. Patient tolerating diet with no reported nausea or vomiting. Blood sugars being monitored and recommend to continue with Accu- Cheks before meals and at bedtime and will continue sliding scale. Patient is maintained on statin therapy along with aspirin and Plavix with neurology following undergoing further neurological workup including MRI of the brain. Due to staffing issues MRI was initially scheduled for 10 this morning although was pushed back until 415. Case management is following and has received insurance authorization for patient to go to [facility]. Will await MRI report to determine if patient will require dual antiplatelet therapy on discharge. Recommend continued PT/OT therapy. Review of Systems Constitutional: Denied any fatigue denied any fever. Cardio vascular: denied any chest pain, palpitations Gastrointestinal: denied any nausea, vomiting, diarrhea Pulmonary: Denied any shortness of breath cough Neurologic denied any new focal deficits All inpatient medications were reviewed and appropriate changes in these medications as dictated in the interval history and assessment and plan. Assessment and plan -Possible cerebrovascular accident with weakness of the left hand. May be a s troke in the superolateral surface of the right brain, MCA territory. Patient was started on aspirin increase the statin dose permissive hypertension. -Sinus bradycardia resolved, patient has been transitioned from metoprolol to carvedilol. -Vascular dementia patient is at her baseline supportive care physical therapy occupational therapy speech therapy evaluation -Type 2 diabetes mellitus -Hyperlipidemia -Hypertension -Hyperactive urinary bladder DVT prophylaxis: Lovenox GI prophylaxis: Pepcid Do Not Resuscitate Do Not Intubate Pending MRI. Due to staffing issues MRI was initially scheduled at 10 this morning although is being pushed back until 415 which would make discharge difficult due to wheelchair van being unavailable and transportation issues. Case management is aware and patient has received insurance authorization to go to [facility]. Discharge packet is made in the event patient does remain hospitalized today and will be able to discharge in the morning. The impression and plan of care has been dictated by Nabila Davidson, Nurse Practitioner as directed. Dr. Yusef MD I have performed a history and physical examination and medical decision making of this patient, discussed the same with the dictator, and agree with the dictators assessment and plan as written, documented as a scribe. Based on total visit time, I have performed more than 50% of this visit. Objective - Vital Signs Vital signs: Vital Signs Temp 98.0 F 06/16/23 08:30 Pulse 87 06/16/23 12:13 Resp 16 06/16/23 12:13 BP 137/71 06/16/23 12:13 Pulse Ox 94 L 06/16/23 12:13 FiO2 Intake & Output 06/15/23 06/16/23 06/16/23 18:59 06:59 18:59 Output Total 300 450 300 Balance -300 -450 -300 Weight 65.771 kg Output: Urine 300 450 300 Other: Voiding Method Incontinent Incontinent Incontinent External Catheter External Catheter External Catheter - Labs CBC & Chem 7: 06/15/23 11:58 06/15/23 11:58 Labs: Abnormal Lab Results - Last 24 Hours (Table) 06/15/23 06/15/23 06/16/23 Range/Units 16:44 20:19 06:13 POC Glucose (mg/dL) 248 H 124 H 131 H (70-110) mg/dL 06/16/23 Range/Units 11:42 POC Glucose (mg/dL) 239 H (70-110) mg/dL
[2023-06-16 16:38] LABS: Glucose,Whole Blood 122 mg/dL (70-110)
--- NOTE | 2023-06-16 16:56 | MR ---
EXAMINATION TYPE: MR brain wo con DATE OF EXAM: 06/16/2023 3:45 PM CLINICAL INDICATION:Female, 87 years old with history of stroke. facial droop and dysarthria; PHH, S troke. Facial droop and dysarthria. COMPARISON: 06/13/2023 06/12/2023. TECHNIQUE: Multi planar, multi sequence imaging was performed through the brain including: T1, T2, In version recovery, Diffusion weighted imaging, and gradient echo imaging. No gadolinium was given. FINDINGS: Encephalomalacia the right frontal lobe from prior injury as well as the right medial cereb ellar hemisphere. The cartwright-white junctions, ventricular system, basal cisterns appear unremarkable. Scattered foci of high T2 signal intensity are seen within the periventricular white matter. Midline structures show no abnormality. Diffusion-weighted imaging shows no evidence of restricted diffusion . The susceptibility weighted images do not reveal any evidence for micro-hemorrhage. The bone marrow signal increased signal within the skull on the left frontal aspect in the bone marro w. This is on a background of benign hyperostosis frontalis. Paranasal sinuses and mastoid air cells: No significant paranasal sinus disease. Visualized orbits: Bilaterally aphakia. IMPRESSION: 1. No evidence of intracranial mass or acute/subacute infarct. 2. Nonspecific white matter changes, likely secondary to small vessel ischemic disease. 3. Remote injury to the right frontal lobe and right cerebellum.
[2023-06-16 20:01] LABS: Glucose,Whole Blood 289 mg/dL (70-110)
[2023-06-17 06:24] LABS: Glucose,Whole Blood 163 mg/dL (70-110)
[2023-06-17 10:58] VITALS: BP 175/82; PULSE 92; RESP 16; TEMP 98.2
--- NOTE | 2023-06-17 11:36 | P.DS ---
Providers Date of admission: 06/12/23 17:56 Attending physician: Fifi Bragg Consults: 06/12/23 17:55 Consult Physician Routine Consulting Provider: Thony June Consult Reason/Comments: cva Do you want consulting provider notified?: Yes Primary care physician: Physician Nonstaff Hospital Course: Final Diagnosis -Hx of stroke right frontal and right cerebellum; MRI confirms remote injury, neurology recommending aspirin 325 mg on discharge -Sinus bradycardia resolved, patient has been transitioned from metoprolol to carvedilol. -Vascular dementia patient is at her baseline supportive care physical therapy occupational therapy speech therapy evaluation -Mild acute kidney injury prerenal this is likely due to poor oral intake. -Mild aortic stenosis -Type 2 diabetes mellitus -Hyperlipidemia -Hypertension -Hyperactive urinary bladder DO NOT RESUSCITATE DO NOT INTUBATE Discharge Disposition Is cleared medically for discharge to [facility]. Patient has received intermittent authorization and has been cleared by neurology. MRI has been completed revealing a remote stroke and neurology recommending aspirin 325 mg daily on discharge. Additionally patient's statin therapy has been increased to milligrams at bedtime. Recommending to continue on sliding scale insulin as well as metformin. Patient is also maintained on Jardiance. She needs to follow-up with a neurologist on discharge. Repeat labs in 2 to 3 days. Hospital Course This is an 87-year-old female with medical history of hypertension, hyperlipidemia, diabetes mellitus, vascular dementia and a hyperactive bladder. Patient comes in with strokelike symptoms evidenced by family member including left-sided weakness and a facial droop. Patient is also dysarthric but does have advanced dementia at baseline. Patient was transferred down from [facility] CT of the head there did not show any acute abnormality. Patient had a follow-up brain CT completed here which shows an old right-sided infarct. Echocardiogram reveals an EF of 55 to 60% with mild aortic stenosis. Carotid Doppler reveals less than 50% stenosis bilaterally. Patient was admitted to the hospital neurology was consulted and recommended brain MRI which was completed Reveals no evidence of intracranial mass or an acute subacute infarct. There is nonspecific white matter changes likely secondary to small vessel ischemic disease. There is remote injury to the right frontal lobe and right cerebellum. Her labs on admission show a white blood cell count of 12.9, potassium 3.3, BUN of 43, creatinine of 1.19. Her hemoglobin A1c is 7.2. Lipid panel completed showing a triglyceride level of 230, cholesterol 183, LDL of 86.8 and an HDL of 50.2. Patient was maintained on Lipitor 20 mg daily which was increased to 40 mg. There is no need for dual antiplatelet therapy at this time as imaging does not reveal an acute infarct. The acute confusion may have been attributed to the mild STEVE and dehydration. Patient does live at home mainly alone with family support and was fairly independent with some of her ADLs prior to admission. Recommendation was made for discharge to subacute rehab and patient was accepted at [facility]. He was gently hydrated and her renal function has normalized with a BUN of 38 and a creatinine of 0.98. Patient has no acute symptoms she is denying any shortness of breath denying chest discomfort no nausea vomiting or diarrhea. She is pleasantly confused. Patient will be discharged to [facility] today. Please see medication reconciliation for a list of current medications. Thank you for allowing us to participate in the care of this patient. The impression and plan of care has been dictated by Shruthi Swartz, Nurse Practitioner as directed. Dr. Yusef MD I have performed a history and physical examination and medical decision making of this patient, discussed the same with the dictator, and agree with the dictators assessment and plan as written, documented as a scribe. Based on total visit time, I have performed more than 50% of this visit. Patient Condition at Discharge: Stable Plan - Discharge Summary Discharge Rx Participant: Yes New Discharge Prescriptions: New Atorvastatin [Lipitor] 40 mg PO HS tab Enoxaparin [Lovenox] 40 mg SQ DAILY each Aspirin 325 mg PO DAILY #30 tab carvediloL [Coreg] 3.125 mg PO BID-W/MEALS tab Losartan [Cozaar] 25 mg PO DAILY tab INSULIN ASPART (NovoLOG) [NovoLOG (formulary)] 0 unit SQ ACHS each Famotidine [Pepcid] 20 mg PO DAILY tab Clopidogrel [Plavix] 75 mg PO DAILY tab Continue Oxybutynin Chloride [oxyBUTYnin chloride ER] 10 mg PO DAILY Empagliflozin [Jardiance] 10 mg PO DAILY Docusate [Colace] 100 mg PO Q48H metFORMIN HCL ER [Glucophage XR] 500 mg PO DAILY Levothyroxine Sodium [Synthroid] 50 mcg PO DAILY Isosorbide Dinitrate 20 mg PO DAILY ALPRAZolam [Xanax] 0.5 mg PO BID PRN #2 tab PRN Reason: Anxiety Discontinued hydroCHLOROthiazide [Hydrodiuril] 12.5 mg PO DAILY Metoprolol Succinate (ER) [Toprol XL] 50 mg PO DAILY Atorvastatin [Lipitor] 20 mg PO HS Discharge Medication List Docusate [Colace] 100 mg PO Q48H 06/12/23 [History] Empagliflozin [Jardiance] 10 mg PO DAILY 06/12/23 [History] Isosorbide Dinitrate 20 mg PO DAILY 06/12/23 [History] Levothyroxine Sodium [Synthroid] 50 mcg PO DAILY 06/12/23 [History] Oxybutynin Chloride [oxyBUTYnin chloride ER] 10 mg PO DAILY 06/12/23 [History] metFORMIN HCL ER [Glucophage XR] 500 mg PO DAILY 06/12/23 [History] ALPRAZolam [Xanax] 0.5 mg PO BID PRN #2 tab 06/16/23 [Rx] Atorvastatin [Lipitor] 40 mg PO HS tab 06/16/23 [Rx] Clopidogrel [Plavix] 75 mg PO DAILY tab 06/16/23 [Rx] Enoxaparin [Lovenox] 40 mg SQ DAILY each 06/16/23 [Rx] Famotidine [Pepcid] 20 mg PO DAILY tab 06/16/23 [Rx] INSULIN ASPART (NovoLOG) [NovoLOG (formulary)] 0 unit SQ ACHS each 06/16/23 [Rx] Losartan [Cozaar] 25 mg PO DAILY tab 06/16/23 [Rx] carvediloL [Coreg] 3.125 mg PO BID-W/MEALS tab 06/16/23 [Rx] Aspirin 325 mg PO DAILY #30 tab 06/17/23 [Rx] Follow up Appointment(s)/Referral(s): Sky Espino MD [REFERRING] - 1 Week Nonstaff,Physician [Primary Care Provider] - 1-2 days [facility] [[facility] - 1-2 Days Ambulatory/Diagnostic Orders: Basic Metabolic Panel [LAB.AMB] Time Frame: 3 Days, Location: None Selected Complete Blood Count w/diff [LAB.AMB] Time Frame: 3 Days, Location: None Selected Activity/Diet/Wound Care/Special Instructions: Patient is going to [facility] Activity as tolerated Follow-up with primary care provider on discharge Follow-up with neurology outpatient Continue taking medications as prescribed Continue monitoring Accu-Cheks before meals and at bedtime and continue with sliding scale NovoLog sliding scale 0-150 equals 0 units 151-200 equals 2 units 201-250 equals 4 units 251-300 equals 6 units 301-350 equals 8 units 351-400 equals 10 units Please notify provider if blood sugar is 400 or above Discharge Disposition: TRANSFER TO SNF/ECF
[2023-06-17 11:43] LABS: Glucose,Whole Blood 236 mg/dL (70-110)
--- NOTE | 2023-06-17 13:40 | P.PN ---
Subjective Progress Note Date: 06/17/23 I am following-up with patient and she feels is doing better. Objective - Vital Signs Vital signs: Vital Signs Temp 98.2 F 06/17/23 09:30 Pulse 92 06/17/23 09:30 Resp 16 06/17/23 09:30 BP 175/82 06/17/23 09:30 Pulse Ox 97 06/17/23 09:30 FiO2 Intake & Output 06/16/23 06/17/23 06/17/23 18:59 06:59 18:59 Intake Total 180 Output Total 650 1000 Balance -650 -1000 180 Weight 65.771 kg Intake: Oral 180 Output: Urine 650 1000 Other: Voiding Method Incontinent Incontinent Incontinent External Catheter External Catheter External Catheter - Exam General: Lying in bed and is not in acute distress. Neuro: The patient is awake alert oriented to self. She correctly stated the current year but stated the month is a July. She stated that she is in the hospital but did not know the name. Somewhat slow responding not drastically better compared to a couple days ago. She is able to name pen and watch. No aphasia. Pupils are round equal reactive to light. Visual dodd are full to consultation. Has left lower facial droop. Lifting all extremities above gravity and appears symmetrical. Some of the workup in our facility consisted of: Lipid panel is triglyceride is 23, cholesterol is 183, LDLs 86 and HDL is 50. 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 carotid duplex:reported as less than 50% stenosis of bilateral carotid bifurcation. 2D echo: Is reported as technically difficult study was poorly visualized endocardium. Normal left ventricle systolic function. MRI the brain is reported as no evidence of intracranial mass or acute/subacute infarct. Nonspecific white matter changes likely secondary due to small vessel ischemic disease. Remote injury in the right frontal right cerebellum. I personally reviewed the CT of the head and I agree there is no acute or subacute stroke. - Labs CBC & Chem 7: 06/15/23 11:58 06/15/23 11:58 Labs: Abnormal Lab Results - Last 24 Hours (Table) 06/16/23 06/16/23 06/17/23 Range/Units 16:36 20:00 06:22 POC Glucose (mg/dL) 122 H 289 H 163 H (70-110) mg/dL 06/17/23 Range/Units 11:41 POC Glucose (mg/dL) 236 H (70-110) mg/dL Assessment and Plan Assessment: This is an 87-year-old woman who was transferred from [facility] emergency department for escalation of care of her stroke. It seems that she was found down on the ground the day prior to presented to the hospital and was found to h ave slurred speech and facial droop. She had a CT of the brain at the outside facility and showed the right-sided subacute versus acute infarct. 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 Acute facial droop and dysarthria. Outside hospital had CT head and reported acute to subacute But MRI and CT in our facility is no acute of subacute stroke---I feel dysarthria is old. Unsure if had old left facial droop from old stroke. Old stroke over the right frontal and cerebellum Underlying history of dementia DM Plan: From neurological perspective only ASA 325mg daily. No dual antiplatelets since no acute/subacute CVA Continue Lipitor 40 mg daily at bedtime by the primary team Continue Neuro checks. Cardiac monitoring Consulted PT and OT. WORSHIP LEADER are is consulted We'll defer the rest of the medical management to primary team and other speci alists For DVT prophylaxis the patient is on Lovenox Recommend the patient to follow-up with neurologist as outpatient within 2 weeks. The plan is discussed with primary team N.P. There is no further neurological work-up. Will sign off. Please reconsult if needed. Time with Patient: Less than 30
== END 2023-06-17 15:58 | DRG 66 ==
LOC: EC 16:55 → 3SCARD 17:56
PROVIDERS: ADMIT Hospitalist; ATTEND Hospitalist
DX: I63.511 Cerebral infarction due to unspecified occlusion or stenosis of right middle cerebral artery (principal); R29.810 Facial weakness; R47.81 Slurred speech; I10 Essential (primary) hypertension; R00.1 Bradycardia, unspecified; F01.50 Vascular dementia, unspecified severity, without behavioral disturbance, psychotic disturbance, mood disturbance, and anxiety; E78.5 Hyperlipidemia, unspecified; E11.649 Type 2 diabetes mellitus with hypoglycemia without coma; N32.81 Overactive bladder; R47.1 Dysarthria and anarthria; H91.90 Unspecified hearing loss, unspecified ear; Z79.84 Long term (current) use of oral hypoglycemic drugs; Z79.890 Hormone replacement therapy; Z79.899 Other long term (current) drug therapy; Z86.73 Personal history of transient ischemic attack (TIA), and cerebral infarction without residual deficits
CPT/HCPCS: 70450; 70551; 80048; 80061; 83036; 83735; 84443; 85025; 93005; 93306; 93880; 94760; 96372; 99285